=== PATIENT | female | born 1965 | race Caucasian/White ===

== ENCOUNTER → 2020-12-13 | Outpatient (CLI) | payer BC, MEDICARE, OTHER | LOC: MRI 12-02 08:30 | DX: D35.2 Benign neoplasm of pituitary gland (principal) | CPT/HCPCS: 36415; 70553; 82565; A9577 ==

== ENCOUNTER → 2021-03-29 | Outpatient (CLI) | payer BC, MEDICARE | LOC: EXRD 13:00 | DX: R55 Syncope and collapse (principal) | CPT/HCPCS: 93306; 93880 ==

== ENCOUNTER → 2021-12-01 | Outpatient (CLI) | payer BC, MEDICARE | LOC: KOH-I 13:00 | DX: S06.5X0A Traumatic subdural hemorrhage without loss of consciousness, initial encounter (principal); X58.XXXA Exposure to other specified factors, initial encounter | CPT/HCPCS: 70450 ==

== ENCOUNTER → 2022-01-18 | Outpatient (CLI) | payer BC, MEDICARE | LOC: KOH-I 01-17 08:15 | DX: R51.9 Headache, unspecified (principal); M47.812 Spondylosis without myelopathy or radiculopathy, cervical region; M50.30 Other cervical disc degeneration, unspecified cervical region; M48.02 Spinal stenosis, cervical region | CPT/HCPCS: 70450; 72040; 72141 ==

== ENCOUNTER → 2022-03-27 | Outpatient (CLI) | payer BC, MEDICARE | LOC: RAD 08:26 | DX: M54.12 Radiculopathy, cervical region (principal); M43.22 Fusion of spine, cervical region | CPT/HCPCS: 72040 ==

== ENCOUNTER 2022-05-01 20:27 | Emergency (ER) | payer BC, MEDICARE ==
[2022-05-01 21:43] LABS: HEMOGLOBIN 11.9 gm/dl (12.3-15.3); RED BLOOD COUNT 4.98 M/UL (4.00-5.10); WHITE BLOOD COUNT 9.7 K/UL (4.5-11.0)
[2022-05-01 22:10] LABS: BUN/CREATININE RATIO 19 (0-10)
== END 2022-05-02 00:36 | disposition home or self-care (01) ==
LOC: ER1 20:27
PROVIDERS: Physician Assistant
DX: S00.03XA Contusion of scalp, initial encounter (principal); E78.5 Hyperlipidemia, unspecified; E11.9 Type 2 diabetes mellitus without complications; J44.9 Chronic obstructive pulmonary disease, unspecified; Z86.73 Personal history of transient ischemic attack (TIA), and cerebral infarction without residual deficits; Z79.4 Long term (current) use of insulin; Z88.8 Allergy status to other drugs, medicaments and biological substances; Z51.81 Encounter for therapeutic drug level monitoring; W19.XXXA Unspecified fall, initial encounter
CPT/HCPCS: 70450; 71045; 72125; 80053; 82550; 82553; 83880; 84484; 85025; 85379; 85610; 85730; 93005; 99284